=== PATIENT | female | born 1980 | race Two or more races ===

== ENCOUNTER 2024-02-08 10:21 | Emergency (ER) | payer MEDICAID, SELFPAY ==
--- NOTE | 2024-02-08 10:24 | EKG_ITS ---
[facility] Test Date: 2024-02-08 Pat Name: KOFI VALDERRAMA Department: Room: - Gender: Female [employer] Intern: : 1980 Requested By: Severino Art Order Number: [id number] Reading MD: Severino Art Measurements Intervals [place] Rate: 63 P: 20 AR: 123 QRS: 41 QRSD: 82 T: 43 QT: 386 QTc: 395 Interpretive Statements SINUS RHYTHM LOW QRS VOLTAGE IN PRECORDIAL LEADS [QRS DEFLECTION < 1.0 mV IN CHEST LEADS] POSSIBLE RIGHT VENTRICULAR CONDUCTION DELAY [RSR (QR) IN V1/V2] Compared to ECG 11/29/2022 23:42:07 Low QRS voltage now present /store/S0/[id number].pdf
--- NOTE | 2024-02-08 10:26 | XR_ITS ---
Examination: PA chest single view TECHNIQUE: Upright PA chest single view Exam date and time: February 08, 2024 1043 hours INDICATIONS: Shortness of breath today FINDINGS: Normal heart size Lungs are clear The osseous structures are intact Surgical clips upper right abdomen IMPRESSION: No active disease
[2024-02-08 10:28] VITALS: BP 144/93; PULSE 65; RESP 17; TEMP 37; O2SAT 97; BMI 28.1
[2024-02-08] MEDS: ACETAMINOPHEN w/COD 300-30 TABLET 2 TAB PO (10:58)
[2024-02-08 11:00] LABS: Basophils % (Auto) 0 % (0-2.5); Eosinophils % (Auto) 0 % (0-10); Hematocrit 45.1 % (36.0-46.0); Hemoglobin 15.2 g/dL (12.0-16.0); Immature Granulocytes % (Auto) 0 % (0-0); Immature Granulocytes Auto 0.01 Thou/mm3 (0.00-0.00); Lymphocytes # (Auto) 2.2 Thou/mm3 (1.0-4.8); Lymphocytes % (Auto) 30 % (10-50); Mean Corpuscular HGB Conc 33.7 g/dl (31.0-37.0); Mean Corpuscular Hemoglobin 31.5 pg (25.0-35.0); Mean Corpuscular Volume 94 fL (80-100); Monocytes # (Auto) 0.5 Thou/mm3 (0.0-0.8); Monocytes % (Auto) 6 % (0-12); Neutrophils # (Auto) 4.6 Thou/mm3 (1.8-7.7); Neutrophils % (Auto) 63 % (37-80); Nucleated Red Blood Cell % 0 /100 WBC (0); Platelet Count 206 Thou/mm3 (140-440); RDW Standard Deviation 43.9 fL (36.4-46.3); Red Blood Count 4.82 Miln/mm3 (4.00-5.20); White Blood Count 7.4 Thou/mm3 (3.6-11.0)
[2024-02-08 11:39] LABS: Alanine Aminotransferase 56 U/L (10-49); Albumin, Serum 5.4 gm/dL (3.5-5.0); Albumin/Globulin Ratio 1.7 (1.2-2.2); Alkaline Phosphatase 222 U/L (46-116); Anion Gap 10 (7-16); Aspartate Amino Transferase 38 U/L (0-34); BUN/Creatinine Ratio 15 Ratio (12-20); Bilirubin,Total 0.6 mg/dL (0.3-1.2); Blood Urea Nitrogen 15 mg/dL (9-23); Calcium 10.1 mg/dL (8.3-10.6); Calcium (Corrected) 10.1 mg/dL (8.5-10.1); Carbon Dioxide 25.5 mMol/L (20.0-31.0); Chloride 104 mMol/L (98-107); Estimated Creatinine Clearance 61.2 mL/min (>60); Globulin 3.2 gm/dL (2.3-3.5); Glucose 95 mg/dL (74-106); Osmolality,Calculated 278 (275-295); Potassium 4.2 mMol/L (3.4-5.1); Sodium 139 mMol/L (136-145); Total Protein 8.6 gm/dL (5.7-8.2); Troponin I < 0.020 ng/mL (0.0-0.045); eGFR > 60 See Note
--- NOTE | 2024-02-08 11:40 | EDNOTE_ITS ---
ED Chest Pain RME/HPI General Chief Complaint: Chest Pain Stated Complaint: CHEST PAIN, BODYACHES, WEAKNESS Time Seen by Provider: 02/08/24 10:22 Arrival date/time: 02/08/24 10:21 RME / HPI RME / HPI narrative: This section includes all my notes and documentations, including HPI, PE, and ED course.? Severino Huynh MD HPI: 43 year old female here with episodes of unusual symptoms for the past few days. Symptoms can include CP, SOB, palpitations, weakness, bodyaches, nausea, upset stomach, tingling in the hands, and dizziness. No other complaints. ROS: All negative except as documented in HPI. Physical Exam: General:? Alert and oriented.? Appears anxious. Eyes:? Conjunctivae and lids clear.? EOMI.? PERRL. ENT:? No nasal congestion.? Pharynx normal.? Tympanic membrane normal bilaterally.??? Neck:? Supple.? No carotid bruit.? No JVD.?? Heart:? RRR.? Lungs:? No respiratory distress.? Good air movement.? No rhonchi, wheezing, rales.?? Abdomen:? Soft and nontender.? Back:? No CVA tenderness.?? Legs:? No clubbing, cyanosis, edema.? Skin:? Warm and dry.?? Neuro:? Alert and oriented X 3.? Cranial Nerves II-XII grossly intact.? No peripheral motor deficits. I reviewed all diagnostic test results. My interpretation of the EKG is sinus rhythm with nonspecific ST-T changes. My interpretation of the chest x-ray is no acute findings. Blood tests unremarkable. Covid/Influenza/RSV negative. At this point, diagnoses include?anxiety. Treatment here included?Tylenol #3 for bodyaches (patient felt much better). Recommended more outpatient cardiac workup. Based on my best medical judgment, made decision no further evaluation or treatment indicated at this time.? Patient understands and agrees to the discharge instructions customized and printed, see below. Discharge instructions from Dr. Huynh: 1. After extensive evaluation, there is no life-threatening condition.? Such as heart attack or pneumothorax (collapsed lung). And there is no serious infection, such as pneumonia or COVID or influenza. 2. Your symptoms may be due to underlying stress or anxiety or nerves.? This is fairly common. 3. Take Xanax as needed.? Whether this helps or not will be valuable information to your private doctors. 4. See a private doctor on 02/09/2024. To make sure there is no serious underlying heart condition, ask to help you get more tests for your heart that cannot be done here in the ER.? Such as Holter Monitor (cardiac monitoring at home from a day to even a month), heart stress test (on treadmill or with medication), echocardiogram (imaging of your heart structures), heart catherization (checking for blockages in your heart arteries), and a referral to see a Department Operations Manager. 5. Seek immediate medical care with worsening or with any concerns.?? Severino Huynh MD Related Data Home Medications ?Medication ?Instructions ?Recorded ?Confirmed capecitabine 150 mg tablet (Xeloda) 1,500 mg PO BID 10/12/18 02/05/19 oxycodone 5 mg tablet 5 mg PO Q6HR pain 10/12/18 02/05/19 prochlorperazine maleate 5 mg 5 mg PO Q6H PRN Nausea 10/12/18 02/05/19 tablet Previous Rx's ?Medication ?Instructions ?Recorded acetaminophen 500 mg capsule 1,000 mg (2 x 500 mg) PO Q6H PRN 10/13/18 fever or pain #30 caps acetaminophen 500 mg capsule 1,000 mg (2 x 500 mg) PO Q6H PRN 02/06/19 fever or pain #30 caps ibuprofen 600 mg tablet 600 mg PO Q8H PRN fever or pain 02/06/19 #30 tabs cetirizine 5 mg-pseudoephedrine ER 1 tab PO BID #20 tabs 11/30/22 120 mg tablet,extended release,12hr (Zyrtec-D) ondansetron 4 mg disintegrating 4 mg PO Q8H PRN nausea and 11/30/22 tablet vomiting #10 tabs alprazolam 0.5 mg tablet (Xanax) 0.5 mg PO BID PRN anxiety #10 tabs 02/08/24 Allergies Allergy/AdvReac Type Severity Reaction Status Date / Time No Known Allergies Allergy Verified 10/12/18 21:46 Course Quality Measures none Orders Category Date Time Status Bedside COVID-19 Antigen Test NOW Care 02/08/24 10:27 Completed Bedside Influenza A&B Antigen Test NOW Care 02/08/24 10:27 Completed EKG (ED ONLY) *Do not use* NOW Care 02/08/24 10:24 Completed EKG (ED Only) Stat Exams 02/08/24 10:24 Draft XR chest 1V portable Stat Exams 02/08/24 10:26 Completed CBC Stat Lab 02/08/24 10:48 Completed CMP [Comprehensive Metabolic Panel] Stat Lab 02/08/24 10:48 Completed Magnesium Stat Lab 02/08/24 10:48 Completed RSV [Respiratory Syncytial Virus Ag] Stat Lab 02/08/24 10:55 Completed Troponin I Stat Lab 02/08/24 10:48 Completed ACETAMINOPHEN w/COD 300-30 [Tylenol w/Cod #3] Med 02/08/24 10:26 Discontinued 2 tab PO X1 ONE Vital Signs Vital signs: Vital Signs Temperature 98.6 F 02/08/24 10:28 Pulse Rate 65 02/08/24 10:28 Respiratory Rate 17 02/08/24 10:28 Blood Pressure 144/93 H 02/08/24 10:28 Pulse Oximetry (%) 97 02/08/24 10:28 Oxygen Delivery Method Room Air 02/08/24 10:28 Chest Pain Patient data External records reviewed:: [facility] [place] previous records Clinical information provided by:: patient Social determinants that could affect healthcare access:: none Patient has the following chronic illnesses:: none How is presenting disease/condition affected by chronic disease/condition?: no chronic disease Evaluation data The following diagnostics were reviewed and interpreted by me:: lab results, radiology exam(s) and EKG tracing(s) (My interpretation of the EKG is: Sinus rhythm (63 bpm) with nonspecific ST-T changes. Severino Huynh MD) Lab and/or radiology exams considered but not ordered:: none Interpretation Summary: anxiety reaction Medications / Prescriptions Medications or Prescriptions considered but not ordered:: none Medication administrations:: Medication Administration History Discontinued Medications Acetaminophen/Codeine Phosphate (Acetaminophen W/Cod 300-30 Tablet) 2 tab PO X1 ONE Stop: 02/08/24 10:27 Last Admin: 02/08/24 10:58 Dose: 2 tab Documented By: TEODORO Tylenol #3 Consultations Consultation(s) initiated? (list below): No Diagnosis Chest Pain Differential Diagnosis: pneumothorax, stable angina, unstable angina pectoris, atypical chest pain, st elevation myocardial infarction, costochondritis, chest pain and other (anxiety) Most likely diagnosis given after review of the tests above:: anxiety reaction Admission Indicated Admission indicated?: not indicated Explain why admission is indicated or not indicated:: admission criteria not met Admission Request Was there a request for admission?: No Disposition Plan Disposition Plan: Discharge Discharge Attestation Discharge Attestation: The patient and all family members were given an opportunity to ask questions and understood the discharge instructions. Discharge instructions specifically effects, indications for sooner follow up or return to the emergency department, and the expected course of current diagnosis. Patient condition: Stable Discharge Plan Plan Patient Disposition: HOME (Self Care) Prescriptions/Referrals Prescriptions/Med Rec: New alprazolam [Xanax] 0.5 mg tablet 0.5 mg PO BID PRN (Reason: anxiety) Qty: 10 0RF No Action ibuprofen 600 mg tablet 600 mg PO Q8H PRN (Reason: fever or pain) Qty: 30 0RF acetaminophen 500 mg capsule 1,000 mg PO Q6H PRN (Reason: fever or pain) Qty: 30 0RF prochlorperazine maleate 5 mg Tablet 5 mg PO Q6H PRN (Reason: Nausea) capecitabine [Xeloda] 150 mg Tablet 1,500 mg PO BID Rx Instructions: 14 days on, 7 days off oxycodone 5 mg Tablet 5 mg PO Q6HR acetaminophen 500 mg capsule 1,000 mg PO Q6H PRN (Reason: fever or pain) Qty: 30 0RF cetirizine-pseudoephedrine [Zyrtec-D] 5-120 mg tablet extended release 12 hr 1 tab PO BID Qty: 20 0RF ondansetron 4 mg tablet,disintegrating 4 mg PO Q8H PRN (Reason: nausea and vomiting) Qty: 10 0RF Referrals: Marcin Bates MD [Primary Care Provider] - In 1 week Problem List Clinical Impression: Stress and adjustment reaction Patient/Caregiver Discharge Instructions Discharge Activity: activity as tolerated Education Materials: ED Anxiety Reaction, ED Panic Attack Additional Instructions: Discharge instructions from Dr. Huynh: 1. After extensive evaluation, there is no life-threatening condition.? Such as heart attack or pneumothorax (collapsed lung). And there is no serious infection, such as pneumonia or COVID or influenza. 2. Your symptoms may be due to underlying stress or anxiety or nerves.? This is fairly common. 3. Take Xanax as needed.? Whether this helps or not will be valuable information to your private doctors. 4. See a private doctor on 02/09/2024. To make sure there is no serious underlying heart condition, ask to help you get more tests for your heart that cannot be done here in the ER.? Such as Holter Monitor (cardiac monitoring at home from a day to even a month), heart stress test (on treadmill or with medication), echocardiogram (imaging of your heart structures), heart catherization (checking for blockages in your heart arteries), and a referral to see a Department Operations Manager. 5. Seek immediate medical care with worsening or with any concerns.?? Print Language: Estonian Stand Alone Forms: Radha Award Info., Patient Portal Info Letter
[2024-02-08 11:41] LABS: Respiratory Syncytial Virus Ag Negative (Negative)
== END 2024-02-08 12:33 | disposition home or self-care (01) ==
PROVIDERS: Emergency Provider Emergency Medicine; PCP Family Medicine
DX: F41.1 Generalized anxiety disorder (principal); F43.20 Adjustment disorder, unspecified
CPT/HCPCS: 36415; 71045; 80053; 83735; 84484; 85025; 87400; 87634; 87811; 93005; 99283; A9270